=== PATIENT | female | born 1955 | race Caucasian/White ===

== ENCOUNTER → 2024-01-07 17:00 | Outpatient (CLI) | payer MEDICARE, SELFPAY ==
[2024-01-07 17:50] LABS: Rheumatoid Factor < 8.6 IU/mL (<12.0)
== END ==
PROVIDERS: PCP Family Medicine; Referring Provider Internal Medicine Critical Care Medicine; Visit Provider Internal Medicine Critical Care Medicine
DX: J84.9 Interstitial pulmonary disease, unspecified (principal)
CPT/HCPCS: 36415; 86038; 86200; 86235; 86331; 86430; 86602; 86606; 86609; 86671

== ENCOUNTER → 2024-01-21 13:45 | Outpatient (CLI) | payer MEDICARE, SELFPAY ==
--- NOTE | 2024-01-21 13:45 | DI.CT.S_ITS ---
PROCEDURE: CT CHEST HIGH RESOLUTION INDICATIONS: ILD TECHNIQUE: Noncontrast 1.0 and 5.0 mm thick contiguous axial sections from the pulmonary apex to the posterior costophrenic angles, with 7 mm thick coronal and sagittal MIP reformats. 1 mm thick dynamic expiratory images acquired through the upper, mid, and lower lungs. 1.0 mm thick axial sections acquired from the yue to the posterior costophrenic angles in the prone end-inspiration position. For radiation dose reduction, the following was used: automated exposure control, adjustment of mA and/or kV according to patient size. COMPARISON: [facility], CT, CT CHEST WITHOUT CONTRAST, 11/25/2023, 15:11. FINDINGS: Image quality: Diagnostic. Lower Neck: No enlarged lymph nodes. Thyroid: No thyroid nodules which require sonographic follow up, per consensus guidelines. Axillae: No enlarged lymph nodes. Chest Wall: Unremarkable. Bones: Age-appropriate bony degenerative changes are seen. Accentuated thoracic kyphosis is seen. Lungs and Pleura: Mild patchy areas of ground-glass opacity can be seen within the lungs, with a mosaic pattern. On expiratory images, moderate areas of air trapping can be seen. Mild focal atelectasis can be seen involving the inferior medial right lower lobe. No pneumothorax or pleural effusions. No consolidation or suspicious nodules. Heart: Heart size is normal. No pericardial effusion. Thoracic Vessels: The aorta and pulmonary arteries demonstrate normal size. Mediastinum and Mile: No enlarged lymph nodes. Esophagus: No wall thickening. There is a small hiatal hernia. Upper Abdomen: Visualized upper abdomen solid organs and bowel loops appear normal. IMPRESSION: Patchy areas of mild ground-glass opacity seen within the lungs in a mosaic pattern. The appearance is felt most likely be related to obstructive small airways disease. Please also consider chronic inflammation, hypersensitivity pneumonia, and atypical infection. Additional findings: Small hiatal hernia Dictated by: Jose Hernández M.D. on 01/22/2024 at 10:06 Transcribed by: BURT on 01/22/2024 at 10:13 Approved by: Jose Hernández M.D. on 01/22/2024 at 13:28
== END ==
PROVIDERS: PCP Family Medicine; Referring Provider Internal Medicine Critical Care Medicine; Visit Provider Internal Medicine Critical Care Medicine
DX: J84.9 Interstitial pulmonary disease, unspecified (principal); K44.9 Diaphragmatic hernia without obstruction or gangrene
CPT/HCPCS: 71250